=== PATIENT | female | born 1955 | race Caucasian/White ===

== ENCOUNTER 2016-07-29 06:57 | Emergency (ER) | payer OTHER ==
[~2016-07-29 06:57] MED LIST: ANTIVERT12.5 MG PO; ATIVAN0.5 M1 PO; ATORVASTATIN CA40 M1 PO; CLONIDINE HCL0.1 MG PO; CLOPIDOGREL75 M1 PO; DILANTIN100 MG PO; FUROSEMIDE40 MG PO; GOOD SENSE ASPI81 M3 PO; KLONOPIN2 MG PO; LEVOTHYROXIN0.025 M2 PO; NOR10T PO; OMEPRAZOLE DR20 M1 PO; RES30 PO; RESTORIL30 MG PO; RISPERIDONE1 MG PO; SERTRALINE100 M1 PO; VESICARE10 M1 PO; ZESTRIL20 MG PO; ZOLOFT100 MG PO
[2016-07-29 08:00] VITALS: BP 120/64
== END 2016-07-29 08:00 | disposition home or self-care (01) ==
LOC: ED 06:57
DX: F41.9 Anxiety disorder, unspecified (principal); I10 Essential (primary) hypertension; F32.9 Major depressive disorder, single episode, unspecified; G89.29 Other chronic pain; M54.9 Dorsalgia, unspecified; E03.9 Hypothyroidism, unspecified; K21.9 Gastro-esophageal reflux disease without esophagitis; G47.30 Sleep apnea, unspecified; I50.9 Heart failure, unspecified

== ENCOUNTER 2016-09-16 18:54 | Inpatient (IN) | payer OTHER ==
[~2016-09-16] VITALS: Ht 157.5 cm; Wt 113.1 kg
[2016-09-16 19:31] LABS: BASOPHIL % 0.4 % (0-2); PLATELET COUNT 177 x10^3mcL (130-400)
[2016-09-16 19:42] LABS: CALCIUM 8.3 mg/dL (8.5-10.1); CARBON DIOXIDE 30.7 mmol/L (21-32); CHLORIDE SERUM 105 mmol/L (98-107); CREATININE SERUM 0.6 mg/dL (0.6-1.0); GFR1 > 60 mL/min; GLUCOSE SERUM 99 mg/dL (74-106); POTASSIUM SERUM 4.3 mmol/L (3.5-5.1); SODIUM SERUM 142 mmol/L (136-145)
[2016-09-16 19:47] LABS: ALBUMIN 3.4 g/dL (3.4-5.0); ALKALINE PHOSPHATASE 98 U/L (46-116); ALT/SGPT 22 U/L (14-59); AST/SGOT 29 U/L (15-37); BILIRUBIN TOTAL 0.18 mg/dL (0.20-1.00); RED CELL DISTRIBUTION WIDTH 14.7 % (11.5-14.5); TOTAL PROTEIN, SERUM 6.9 g/dL (6.4-8.2)
[2016-09-17] VITALS (7 sets, daily range): BP systolic 90–136; BP diastolic 36–85
[2016-09-17 01:14] LABS: T3 TOTAL 1.2 ng/mL
[2016-09-17 01:27] LABS: MAGNESIUM 2.2 mg/dL (1.8-2.4); PHOSPHOROUS 3.7 mg/dL (2.5-4.9)
[2016-09-17 01:28] LABS: CHOLESTEROL/HDL RATIO 2.5
[2016-09-17 01:36] LABS: FREE T4 0.73 ng/dL (0.76-1.46)
[2016-09-17 01:37] LABS: FREE THYROXINE INDEX 1.5 ug/dL (1.4-4.5); T4(THYROXINE) 4.6 ug/dL (4.7-13.3)
[2016-09-17 07:08] LABS: microscopic required? YES; urine erythrocyte NEGATIVE (NEGATIVE)
[2016-09-18 05:18] VITALS: BP 118/65
[2016-09-18 06:18] LABS: CALCIUM 8.6 mg/dL (8.5-10.1); CARBON DIOXIDE 29.2 mmol/L (21-32); CHLORIDE SERUM 104 mmol/L (98-107); CREATININE SERUM 0.5 mg/dL (0.6-1.0); GFR1 > 60 mL/min; GLUCOSE SERUM 127 mg/dL (74-106); POTASSIUM SERUM 4.1 mmol/L (3.5-5.1); SODIUM SERUM 140 mmol/L (136-145)
[2016-09-18 10:08] VITALS: BP 125/62
[2016-09-18 18:09] VITALS: BP 118/64
[2016-09-18 20:27] VITALS: BP 106/42
[2016-09-19 05:44] VITALS: BP 110/50
[2016-09-19 05:50] LABS: BASOPHIL % 0.2 % (0-2); PLATELET COUNT 143 x10^3mcL (130-400)
[2016-09-19 06:00] LABS: RED CELL DISTRIBUTION WIDTH 14.9 % (11.5-14.5)
[2016-09-19 06:04] LABS: CALCIUM 8.8 mg/dL (8.5-10.1); CARBON DIOXIDE 30.2 mmol/L (21-32); CHLORIDE SERUM 103 mmol/L (98-107); CREATININE SERUM 0.6 mg/dL (0.6-1.0); GFR1 > 60 mL/min; GLUCOSE SERUM 112 mg/dL (74-106); PHOSPHOROUS 4.5 mg/dL (2.5-4.9); POTASSIUM SERUM 3.9 mmol/L (3.5-5.1); SODIUM SERUM 142 mmol/L (136-145)
[2016-09-19 13:41] VITALS: BP 113/66
[2016-09-19 15:36] VITALS: BP 113/66
[2016-09-19] MEDS ORDERED: IPRATROPIUM BROM3 M2 HHN (16:03)
[2016-09-19] MEDS ORDERED: LIPI20 PO (16:06)
[2016-09-19] MEDS ORDERED: NIC14 TD (16:06)
[2016-09-19] MEDS ORDERED: NIT0.4 SL (16:07)
[2016-09-19] MEDS ORDERED: MIN1 PO (16:07)
[2016-09-19] MEDS ORDERED: KLO0.5 PO (16:09)
[2016-09-19] MEDS ORDERED: APAP/HYDROCODON1 T13 PO (16:09)
[2016-09-19] MEDS ORDERED: DIL100 PO (16:10)
[2016-09-19] MEDS ORDERED: RES15 PO (16:10)
[2016-09-19] MEDS ORDERED: SERTRALINE50 M1 PO (16:10)
[2016-09-19] MEDS ORDERED: SYN25 PO (16:11)
[2016-09-19 18:16] VITALS: BP 119/73
[2016-09-19 20:27] VITALS: BP 94/51
== END 2016-09-19 22:40 | DRG 73 ==
LOC: ED 18:54 → DU 23:23
PROVIDERS: Emergency Medicine; ADMIT Family Medicine
DX: G90.9 Disorder of the autonomic nervous system, unspecified (principal); N17.0 Acute kidney failure with tubular necrosis; N39.0 Urinary tract infection, site not specified; J44.1 Chronic obstructive pulmonary disease with (acute) exacerbation; Z68.42 Body mass index [BMI] 45.0-49.9, adult; F41.9 Anxiety disorder, unspecified; G40.909 Epilepsy, unspecified, not intractable, without status epilepticus; G89.4 Chronic pain syndrome; F32.9 Major depressive disorder, single episode, unspecified; E78.5 Hyperlipidemia, unspecified; I10 Essential (primary) hypertension; K21.9 Gastro-esophageal reflux disease without esophagitis; E03.9 Hypothyroidism, unspecified; D64.9 Anemia, unspecified; F17.210 Nicotine dependence, cigarettes, uncomplicated; E66.01 Morbid (severe) obesity due to excess calories; Z98.1 Arthrodesis status; Z98.84 Bariatric surgery status; Z86.718 Personal history of other venous thrombosis and embolism
CPT/HCPCS: 82962; 83880; 84439; 97110-GP; 97116-GP; 97530-GP; J0696; J2060; J2405; J2920; J2930; J3010; J7620; Q0092; Q9967

== ENCOUNTER 2016-12-23 09:07 | Day surgery (SDC) | payer OTHER ==
[~2016-12-23] VITALS: Ht 157.5 cm; Wt 112.9 kg
[~2016-12-23 09:07] MED LIST changes: +APAP/HYDROCODON1 T13 PO; +DIL100 PO; +IPRATROPIUM BROM3 M2 HHN; +KLO0.5 PO; +LIPI20 PO; +MIN1 PO; +NIC14 TD; +NIT0.4 SL; +RES15 PO; +SERTRALINE50 M1 PO; +SYN25 PO
[2016-12-23 09:51] VITALS: BP 142/85
[2016-12-23 12:56] VITALS: BP 128/72
== END 2016-12-23 13:25 | disposition home or self-care (01) ==
LOC: GI 09:07
PROVIDERS: Internal Medicine Gastroenterology
PROC: 0DB68ZX Excision of Stomach, Via Natural or Artificial Opening Endoscopic, Diagnostic (ICD-10-PCS; principal; 2016-12-23 10:00)
PROC: 0DJD8ZZ Inspection of Lower Intestinal Tract, Via Natural or Artificial Opening Endoscopic (ICD-10-PCS; 2016-12-23 10:00)
DX: K29.70 Gastritis, unspecified, without bleeding (principal); R19.4 Change in bowel habit; Z98.84 Bariatric surgery status
CPT/HCPCS: 43235; 45378; J1200; J1610; J2250; J2310; J3010; J3360; J3490